=== PATIENT | male | born 2000 | race American Indian/Alaskan Native ===

== ENCOUNTER 2021-10-26 14:05 | Emergency (ER) | payer SELFPAY ==
--- NOTE | 2021-10-26 17:24 | Emergency Department Report ---
HPI - General Chief Complaint: Urogenital-Male Time Seen by Provider: 10/26/21 17:15 - HPI HPI: Room 8 Patient is a 21-year-old male present with a chief complaint of left testicular pain. The patient states this morning after urinating began to have pain in left testicle. Patient states the pain has been constant in nature. Patient denies dysuria or hematuria. Patient states his testicular pain was initially 10/10 but is now a 7.5/10. Ultrasound was ordered immediately by myself after picking up chart, prior to seeing patient. networking technology instructor called and verbally informed the ultrasound was necessary immediately ED Past Medical Hx - Past Medical History Previous Medical History?: Yes - Surgical History Past Surgical History?: No - Family History Family history: no significant - Social History Smoking Status: Current Every Day Smoker Substance Use Type: Alcohol, Marijuana ED Review of Systems ROS: Stated complaint: TESTICULAR PAIN Other details as noted in HPI Constitutional: no symptoms reported. denies: fever Eyes: denies: eye pain ENT: denies: throat pain Respiratory: no symptoms reported Cardiovascular: denies: chest pain Endocrine: no symptoms reported Gastrointestinal: denies: nausea, vomiting Genitourinary: testicular pain Musculoskeletal: denies: back pain Neurological: denies: headache Physical Exam - Physical Exam Vital Signs: Vital Signs 10/26/21 16:20 Temperature 98.5 F Pulse Rate 81 Respiratory 20 Rate Blood Pressure 161/96 [Left] O2 Sat by Pulse 96 Oximetry Physical Exam: GENERAL: The patient is well-developed well-nourished male lying on stretcher not appearing to be in acute distress. [] HEENT: Normocephalic. Atraumatic. Extraocular motions are intact. Patient has moist mucous membranes. NECK: Supple. Trachea midline CHEST/LUNGS: Clear to auscultation. There is no respiratory distress noted. HEART/CARDIOVASCULAR: Regular. There is no tachycardia. There is no gallop rub or murmur. ABDOMEN: Abdomen is soft, nontender. Patient has normal bowel sounds. There is no abdominal distention. SKIN: There is no rash. There is no edema. There is no diaphoresis. NEURO: The patient is awake, alert, and oriented. The patient is cooperative. The patient has no focal neurologic deficits. The patient has normal speech. GCS 15 MUSCULOSKELETAL: There is no evidence of acute injury. ED Course Vital Signs 10/26/21 16:20 Temperature 98.5 F Pulse Rate 81 Respiratory 20 Rate Blood Pressure 161/96 [Left] O2 Sat by Pulse 96 Oximetry - Reevaluation(s) Reevaluation #1: 10/26/21 18:25 Manual detorsion attempted. Patient was administered etomidate 12 mg IV and left testicle was rotated laterally (open book) for 1 full revolution Reevaluation #2: 10/26/21 18:48 EMS is here to transport patient to [place] [facility] - Consultations Consultation #1: 10/26/21 17:50 Received verbal report from laser/electro optics technician that she cannot find flow in the left testicle. [place] [facility] transfer line called immediately 10/26/21 17:53 Case discussed with [place] [facility] transfer line- will contact urology ED Medical Decision Making - Differential Diagnosis Testicular torsion, epididymitis, UTI Critical care attestation.: If time is entered above; I have spent that time in minutes in the direct care of this critically ill patient, excluding procedure time. ED Disposition Clinical Impression: Left testicular torsion Disposition: 51 HOSPICE/MEDICAL FACILITY Is pt being admited?: No Does the pt Need Aspirin: No Condition: Serious Time of Disposition: 18:49 (Transport to [place] [facility] ED)
[2021-10-26] MEDS ORDERED: ONDANSETRON 4 MG/2 ML INJ IV ONE (18:09)
[2021-10-26] MEDS ORDERED: HYDROmorphone 1 MG/1 ML INJ IV ONE (18:09)
[2021-10-26] MEDS ORDERED: ETOMIDATE 20 MG/10 ML INJ IV ONE (18:16)
--- NOTE | 2021-10-26 18:20 | Ultrasound Report ---
[facility] ULTRASOUND INDICATION: Left testicular pain COMPARISON: None available FINDINGS: Testicles: Both testicles appear within normal limits morphologically. No testicular masses are seen. Good flow is seen in the right testicle. However, no significant internal flow is noted in the left testicle. Epididymides: Right epididymis appears within normal limits. Left epididymis shows a head with normal size and appearance but the body appears edematous as can be seen with inflammation. Hydroceles: Minimal left hydrocele Other findings: None significant IMPRESSION: 1. Evidence of left testicular torsion with no obvious flow seen 2. Enlargement of the left epididymal body is nonspecific but can be seen with inflammation. CRITICAL RESULT: Time of Discovery (DANCING MASTER/CDT): 1655 Time of Communication (DANCING MASTER/CDT): 1700 Licensed Practitioner Receiving Report: Dr. Holloway Read-Back Performed: Not applicable. Signer Name: Scar Bustamante MD Signed: 10/26/2021 6:16 PM Workstation Name: [id number]
[2021-10-26 18:42] VITALS: BP 158/99
== END 2021-10-26 18:53 | disposition hospice, inpatient (51) ==
LOC: ED 14:05
DX: N44.00 Torsion of testis, unspecified (principal); F17.200 Nicotine dependence, unspecified, uncomplicated
CPT/HCPCS: 93975; 96374; 96375; 99285; J1170; J2405; J3490